=== PATIENT | male | born 1945 | race Caucasian/White ===

== ENCOUNTER 2020-08-11 08:43 | Inpatient (IN) ==
[2020-08-11] MEDS ORDERED: Ipratropium/Albuterol Neb 3 ML IH ONE (08:58)
[2020-08-11] MEDS ORDERED: predniSONE 20 MG TABLET PO ONE (09:02)
[2020-08-11 09:23] LABS: Basophils # 0.1 K/mcL (0.0-0.2); Basophils % 1.3 %; Eosinophils # 0.2 K/mcL (0.0-0.6); Hematocrit 50.3 % (37.5-50.1); Hemoglobin 15.1 g/dL (12.9-16.9); Immature Granulocytes % 0.2 % (0-4); Lymphocytes # 1.1 K/mcL (0.6-4.6); Lymphocytes % 19.3 %; Mean Corpuscular Hemoglobin 29.7 pg (28.0-33.3); Mean Corpuscular Volume 98.8 fL (83.0-100.0); Mean Platelet Volume 10.5 fL (9.4-12.4); Monocytes # 0.5 K/mcL (0.0-1.3); Monocytes % 8.6 %; Neutrophils # 3.7 K/mcL (1.6-8.9); Platelet Count 207 K/mcL (140-400); Red Blood Count 5.09 M/mcL (4.19-5.50); Red Cell Distribution Width 14.6 % (11.5-14.5); Segmented Neutrophils % 66.6 %; White Blood Count 5.5 K/mcL (4.3-11.1)
[2020-08-11] MEDS ORDERED: Isovue-370 500 ML BOTTLE IVP ONE ×2 (09:30→09:40)
[2020-08-11 09:31] LABS: VBG HCO3 36 mEq/L (21-27); VBG PCO2 79 mmHg (41-51); VBG PH 7.27 pH Units (7.32-7.42); VBG PO2 33 mmHg (25-50)
[2020-08-11 09:53] LABS: Alanine Aminotransferase 11 Units/L (7-52); Albumin 4.1 g/dL (3.5-5.7); Albumin/Globulin Ratio 1.4 (1.1-2.2); Alkaline Phosphatase 85 Units/L (34-104); Aspartate Amino Transferase 14 Units/L (13-39); BUN/Creatinine Ratio 13 (6-26); Bilirubin,Direct 0.1 mg/dL (0.0-0.2); Bilirubin,Indirect 0.4 mg/dL (0.0-1.0); Bilirubin,Total 0.5 mg/dL (0.3-1.0); Blood Urea Nitrogen 19 mg/dL (8-23); Calcium 9.2 mg/dL (8.6-10.3); Carbon Dioxide 33 mEq/L (23-29); Chloride 99 mEq/L (98-107); Ethanol < 10 mg/dL (Less than 10); Glucose 120 mg/dL (70-105); Osmolality,Calculated 289 (280-300); Potassium 5.2 mEq/L (3.5-5.1); Sodium 138 mEq/L (136-145); Total Protein 7.1 g/dL (6.4-8.9); Troponin I < 0.03 ng/mL (< 0.04); eGFR For African Americans 58 (> 60); eGFR For Non-African Americans 47 (> 60)
[2020-08-11 10:33] LABS: Prothrombin Time 11.2 Seconds (9.4-12.1)
[2020-08-11 10:57] LABS: SARS-CoV-2 Not Detected (Not Detect)
[2020-08-11 10:58] LABS: Adenovirus Not Detected (Not Detect); Bordetella Pertussis Not Detected (Not Detect); Chlamydophila pneumoniae Not Detected (Not Detect); Coronavirus 229E Not Detected (Not Detect); Coronavirus HKU1 Not Detected (Not Detect); Coronavirus NL63 Not Detected (Not Detect); Coronavirus OC43 Not Detected (Not Detect); Human Metapneumovirus Not Detected (Not Detect); Human Rhinovirus/Enterovirus Not Detected (Not Detect); Influenza A Subtype 2009 H1 Not Detected (Not Detect); Influenza B Not Detected (Not Detect); Mycoplasma pneumoniae Not Detected (Not Detect); Parainfluenza Virus 1 Not Detected (Not Detect); Parainfluenza Virus 2 Not Detected (Not Detect); Parainfluenza Virus 3 Not Detected (Not Detect); Parainfluenza Virus 4 Not Detected (Not Detect); Respiratory Syncytial Virus Not Detected (Not Detect)
[2020-08-11] MEDS ORDERED: Azithromycin 250 MG TABLET PO ONE (12:06)
[2020-08-11] MEDS ORDERED: Naloxone 0.4 MG/ML INJ IVP PRN (12:27)
[2020-08-11] MEDS ORDERED: Perflutren Lipid Microsphere 1.3 ML in 0.9 % Sodium Chloride 8.7 ML IVP PRN (14:05)
[2020-08-11] MEDS ORDERED: Fluticasone Propionate Nasal 50 MCG/SPRAY BOTTLE NS PRN (14:07)
[2020-08-11] MEDS ORDERED: Ondansetron ODT 4 MG TAB.RAPDIS PO PRN (14:07)
[2020-08-11] MEDS: Gabapentin 300 MG CAPSULE PO SCH ×2 (14:33→20:28)
[2020-08-11] MEDS: Furosemide 20 MG/2 ML VIAL IVP SCH ×2 (14:34→20:28)
[2020-08-11] MEDS: Ipratropium/Albuterol Neb 3 ML IH SCH ×2 (16:04→22:54)
[2020-08-11] MEDS: cilostazoL 100 MG TABLET PO SCH (20:28)
[2020-08-12] MEDS: Ipratropium/Albuterol Neb 3 ML IH SCH ×4 (03:48→22:21)
[2020-08-12] MEDS: *HR* Enoxaparin 40 MG/0.4 ML SYRINGE SQ SCH (05:13)
[2020-08-12] MEDS: lisinopriL 10 MG TABLET PO SCH (07:46)
[2020-08-12] MEDS: Gabapentin 300 MG CAPSULE PO SCH ×3 (07:46→20:19)
[2020-08-12] MEDS: cilostazoL 100 MG TABLET PO SCH ×2 (07:46→20:19)
[2020-08-12] MEDS: Aspirin Enteric Coated 81 MG Tablet PO SCH (07:46)
[2020-08-12] MEDS: Furosemide 20 MG/2 ML VIAL IVP SCH ×2 (07:46→20:18)
[2020-08-12] MEDS ORDERED: predniSONE 20 MG TABLET PO SCH (09:00)
[2020-08-12] MEDS: polyethylene glycoL 3350 17 GM POWD.PACK PO PRN (13:45)
[2020-08-12 14:37] LABS: Basophils % 0.3 %; Eosinophils % 0.2 %; Hemoglobin 14.8 g/dL (12.9-16.9); Immature Granulocytes % 0.5 % (0-4); Lymphocytes # 0.4 K/mcL (0.6-4.6); Lymphocytes % 6.1 %; Mean Corpuscular HGB Conc 30.2 g/dL (31.6-35.5); Mean Corpuscular Hemoglobin 28.9 pg (28.0-33.3); Mean Corpuscular Volume 95.7 fL (83.0-100.0); Mean Platelet Volume 10.7 fL (9.4-12.4); Monocytes # 0.1 K/mcL (0.0-1.3); Monocytes % 1.9 %; Neutrophils # 5.8 K/mcL (1.6-8.9); Platelet Count 224 K/mcL (140-400); Red Blood Count 5.12 M/mcL (4.19-5.50); Red Cell Distribution Width 14.8 % (11.5-14.5); White Blood Count 6.4 K/mcL (4.3-11.1)
[2020-08-12 14:55] LABS: Calcium 9.6 mg/dL (8.6-10.3); Potassium 4.6 mEq/L (3.5-5.1)
[2020-08-12 15:20] LABS: Magnesium 2.3 mg/dL (1.6-2.6); Phosphorous 2.6 mg/dL (2.7-4.5)
[2020-08-13 03:33] LABS: Basophils % 0.5 %; Eosinophils % 0.3 %; Hematocrit 47.4 % (37.5-50.1); Hemoglobin 14.7 g/dL (12.9-16.9); Immature Granulocytes % 0.2 % (0-4); Lymphocytes # 0.9 K/mcL (0.6-4.6); Lymphocytes % 13.4 %; Mean Corpuscular Hemoglobin 29.7 pg (28.0-33.3); Mean Corpuscular Volume 95.8 fL (83.0-100.0); Monocytes # 0.6 K/mcL (0.0-1.3); Neutrophils # 4.8 K/mcL (1.6-8.9); Platelet Count 202 K/mcL (140-400); Red Blood Count 4.95 M/mcL (4.19-5.50); Red Cell Distribution Width 14.7 % (11.5-14.5); Segmented Neutrophils % 75.6 %; White Blood Count 6.4 K/mcL (4.3-11.1)
[2020-08-13] MEDS: Ipratropium/Albuterol Neb 3 ML IH SCH ×4 (03:51→21:29)
[2020-08-13 03:52] LABS: BUN/Creatinine Ratio 22 (6-26); Blood Urea Nitrogen 29 mg/dL (8-23); Calcium 9.3 mg/dL (8.6-10.3); Carbon Dioxide 32 mEq/L (23-29); Chloride 99 mEq/L (98-107); Glucose 124 mg/dL (70-105); Osmolality,Calculated 297 (280-300); Potassium 4.1 mEq/L (3.5-5.1); Sodium 140 mEq/L (136-145); eGFR For African Americans > 60 (> 60); eGFR For Non-African Americans 53 (> 60)
[2020-08-13 03:53] LABS: Magnesium 2.5 mg/dL (1.6-2.6); Phosphorous 5.4 mg/dL (2.7-4.5)
[2020-08-13] MEDS: *HR* Enoxaparin 40 MG/0.4 ML SYRINGE SQ SCH (05:15)
[2020-08-13] MEDS: cilostazoL 100 MG TABLET PO SCH ×2 (08:45→20:57)
[2020-08-13] MEDS: lisinopriL 10 MG TABLET PO SCH (08:45)
[2020-08-13] MEDS: Aspirin Enteric Coated 81 MG Tablet PO SCH (08:45)
[2020-08-13] MEDS: Gabapentin 300 MG CAPSULE PO SCH ×3 (08:45→20:57)
[2020-08-13] MEDS: Furosemide 20 MG/2 ML VIAL IVP SCH ×3 (08:45→20:56)
[2020-08-13] MEDS: diazePAM 5 MG TABLET PO PRN (08:51)
[2020-08-14] MEDS: Ipratropium/Albuterol Neb 3 ML IH SCH ×4 (03:39→22:26)
[2020-08-14] MEDS: *HR* Enoxaparin 40 MG/0.4 ML SYRINGE SQ SCH (05:14)
[2020-08-14 07:23] LABS: Magnesium 2.5 mg/dL (1.6-2.6); Potassium 4.5 mEq/L (3.5-5.1)
[2020-08-14] MEDS: lisinopriL 10 MG TABLET PO SCH (08:34)
[2020-08-14] MEDS: polyethylene glycoL 3350 17 GM POWD.PACK PO PRN (08:34)
[2020-08-14] MEDS: Gabapentin 300 MG CAPSULE PO SCH ×3 (08:34→20:24)
[2020-08-14] MEDS: cilostazoL 100 MG TABLET PO SCH ×2 (08:34→20:24)
[2020-08-14] MEDS: Sennosides/Docusate Sodium TABLET PO SCH ×2 (08:34→20:24)
[2020-08-14] MEDS: Aspirin Enteric Coated 81 MG Tablet PO SCH (08:34)
[2020-08-14] MEDS: Furosemide 20 MG/2 ML VIAL IVP SCH (08:34)
[2020-08-14] MEDS: Furosemide 20 MG TABLET PO SCH (16:39)
[2020-08-14] MEDS: diazePAM 5 MG TABLET PO PRN (20:26)
[2020-08-15] MEDS ORDERED: 0.9 % Sodium Chloride 250 ML IVC ONE (00:14)
[2020-08-15] MEDS: Ipratropium/Albuterol Neb 3 ML IH SCH ×2 (03:53→10:32)
[2020-08-15 05:37] LABS: Calcium 9.9 mg/dL (8.6-10.3); Magnesium 2.5 mg/dL (1.6-2.6)
[2020-08-15] MEDS: *HR* Enoxaparin 40 MG/0.4 ML SYRINGE SQ SCH (05:50)
[2020-08-15 07:38] VITALS: BP 102/73
[2020-08-15] MEDS: Furosemide 20 MG TABLET PO SCH (08:03)
[2020-08-15] MEDS: Aspirin Enteric Coated 81 MG Tablet PO SCH (08:03)
[2020-08-15] MEDS: Sennosides/Docusate Sodium TABLET PO SCH (08:03)
[2020-08-15] MEDS: lisinopriL 10 MG TABLET PO SCH (08:03)
[2020-08-15] MEDS: Gabapentin 300 MG CAPSULE PO SCH (08:03)
[2020-08-15] MEDS: cilostazoL 100 MG TABLET PO SCH (08:03)
[2020-08-15] MEDS: diazePAM 5 MG TABLET PO PRN (10:39)
== END 2020-08-15 12:20 | disposition home health service (06) | DRG 291 ==
LOC: 3BNU 08:43 → EMEROOARM 08:43 → SUATTDRO 12:38 → 3BNU 13:43 → SUATTDRO 08-12 17:52
PROVIDERS: ADMIT Student in an Organized Health Care Education/Training Program; ATTEND Internal Medicine